=== PATIENT | female | born 1940 | race Caucasian/White ===

== ENCOUNTER → 2017-05-03 | Outpatient (CLI) | payer MEDICARE, OTHER ==
[~2017-05-03] MED LIST: ASPIRIN LO-DOSE81 MG PO; EXCEDRIN MIGRA1 EACH PO; GLUCOPHAGE XR500 M1 PO; GLUCOSE4 GM PO; LANTUS SOL100 UNIT/1 SUB-Q; LIPITOR80 MG PO; NOVOLOG FL100 UNIT/1 SUB-Q; PRILOSEC20 MG PO; PRINIVIL (ZESTR20 MG PO; TENORMIN25 MG PO; TYLENOL EXTRA500 MG PO; ULTRAM50 MG PO
== END | disposition disaster alternative care site (69) ==
LOC: GBCOE 08:38
DX: R92.8 Other abnormal and inconclusive findings on diagnostic imaging of breast (principal); N63 Unspecified lump in breast; N60.01 Solitary cyst of right breast; N60.12 Diffuse cystic mastopathy of left breast
CPT/HCPCS: G0204; G0279